=== PATIENT | female | born 2005 | race Caucasian/White ===

== ENCOUNTER 2024-03-26 07:31 | Emergency (ER) | payer OTHER ==
[~2024-03-26] VITALS: Ht 165.1 cm; Wt 61.4 kg
[2024-03-26 07:48] VITALS: TEMP 98.8
[2024-03-26] MEDS ORDERED: droPERidol 2.5 MG/ML 2 ML VIAL IV ONE (08:15)
[2024-03-26] MEDS ORDERED: NS 1,000 ML IV ONE ×2 (08:15→12:45)
[2024-03-26 08:53] LABS: ALBUMIN 4.7 g/dL (3.5-5.0); BILIRUBIN,TOTAL 1.2 mg/dL (0.2-1.2); CALCIUM 10.5 mg/dL (8.4-10.2); CREATININE, serum 0.89 mg/dL (0.57-1.11); POTASSIUM 4.1 mEq/L (3.5-4.5); TOTAL PROTEIN 8.5 g/dl (6.2-8.1)
[2024-03-26] MEDS ORDERED: Iohexol 300 - 100 ML VIAL IV ONE (09:56)
[2024-03-26] MEDS ORDERED: NS 100 ML IV SCH (09:57)
[2024-03-26 10:00] LABS: HEMATOCRIT 37.4 % (35.0-45.0); HEMOGLOBIN 12.7 g/dl (12.0-15.0); MEAN CELL VOLUME 95 fl (80.0-95.0); MEAN CORPUSCULAR HEMOGLOBIN 32 pg (26-32); MEAN CORPUSCULAR HGB CONC 34 g/dl (33.0-37.0); MEAN PLATELET VOLUME 9.2 fl (7.4-10.4); PLATELET COUNT 342 K/mm3 (130-400); RED BLOOD COUNT 3.95 M/mm3 (4.10-5.30); REDCELL DISTRIBUTION WIDTH-CV 13.1 % (11.5-14.5)
[2024-03-26 11:03] LABS: LYMPHOCYTE 7 % (20.0-51.0); NEUTROPHILS 81 % (42.0-75.2)
[2024-03-26] MEDS ORDERED: ZOFRAN ODT4 MG PO (14:09)
[2024-03-26] MEDS ORDERED: PHENERGAN 25 TA25 MG PO (14:09)
[2024-03-26 14:24] VITALS: BP 125/91; PULSE 80
== END 2024-03-26 14:33 | disposition home or self-care (01) ==
LOC: COL.ER 07:31
PROVIDERS: Personal Emergency Response Attendant
DX: R11.2 Nausea with vomiting, unspecified (principal); E86.0 Dehydration; R73.9 Hyperglycemia, unspecified; E87.20 Acidosis, unspecified
CPT/HCPCS: J0780; J1790; J7030; Q9967